=== PATIENT | male | born 1995 | race Caucasian/White ===

== ENCOUNTER 2023-09-12 16:21 | Outpatient (AMB) | payer OTHER, SELFPAY ==
[2023-09-12 16:30] VITALS: BP 150/69; PULSE 112; O2SAT 97; BMI 24.9
--- NOTE | 2023-09-12 16:30 | A.OFFPC_ITS ---
Vital Signs 09/12/23 16:30 09/12/23 17:00 Height 5 ft 9.5 in Weight 171 lb 2 oz BMI 24.9 BP 150/69 H 140/72 H Blood Pressure Location Lt brachial Rt brachial Pulse 112 H Pulse Source Pulse Oximeter Pulse Oximetry (%) 97 Oxygen Delivery Method Room Air Intake Visit Reasons: Med Review Intake Note: Patient is here for review of 2 meds, sertraline 50 mg, and ondansetron ER. Allergies No Known Allergies Allergy (Verified 09/12/23 16:31) Tobacco use date assessed: 09/12/23 Dental Screening Dental Screen Date: 09/12/23 Did you have a dental visit in the last 12 months?: No Was dental information given to patient?: Yes HPI Med Review HPI Details 27 y/o male presents today for a med rev iew. Pt prescribed bupropion 37.5mg b.i.d. He states he is no longer taking bupropion. Blood pressure today 150/69, 112p. He is not on any medications for blood pressure. PHQ-9 14, DAWN-7 18. Pt notes he had been prescribed sertraline and Adderall by a provider. HPI Comments History of Present Illness Details Documentation assistance for Emmanuel Rangel MD, was provided by Yahir Granados, Academic Support Assistant on 09/12/2023 5:04 PM MIGUEL. Ana, Dr. Rangel, have read, observed, and verified documentation. [facility] Social History Housing: Apartment Patient Tobacco Use Status: Never used Tobacco e-Cigarette/Vaping Use: Never Used Second Hand Smoke Exposure: No service: No Current occupational status: employed Current occupational exposures/hazards: No Cognitive needs: No Hearing needs: No Vision needs: No Questionnaire PHQ-9 Over the last 2 weeks, how often have you been bothered by any of the following problems? 1. Little interest or pleasure in doing things: not at all 2. Feeling down, depressed, or hopeless: several days 3. Trouble falling or staying asleep, or sleeping too much: more than half the days 4. Feeling tired or having little energy: more than half the days 5. Poor appetite or overeating: nearly every day 6. Feeling bad about yourself - or that you are a failure or have let yourself or your family down: not at all 7. Trouble concentrating on things, such as reading the newspaper or watching television: nearly every day 8. Moving or speaking so slowly that other people could have noticed. Or the opposite - being so fidgety or restless that you have been moving around a lot more than usual: nearly every day 9. Thoughts that you would be better off or of hurting yourself in some way: not at all Total score: 14 Depression Screening Interpretation: Positive Depression Screening Done: Yes Source: Developed by Drs. Abundio Max, Asiya Wayne, Bobby French and colleagues, with an educational hugh from [employer] Thrive Questionnaire Date Thrive assessed: 09/12/23 I am a: Patient What is your living situation today?: I have a steady place to live Within the past 12 months, did the food you bought not last and you didn't have the money to get more?: Never true Within the past 12 months, did you worry whether your food would run out before you got money to buy more?: Never true Do you have trouble paying for medicines?: No Do you have trouble getting transportation to medical appointments?: No Do you have trouble paying your heating and electricity bill?: No Do you have trouble taking care of your child, family member or friend?: No Do you have trouble with day-to-day activities such as bathing, preparing meals, shopping, managing finances, etc.?: No Are you currently unemployed and looking for a job?: No Are you interested in more education?: Yes THRIVE Score: 0 AUDIT C Alcohol Use Questionnaire (AUDIT-C) 1. How often do you have a drink containing alcohol?: 2-3 times a week 2. How many drinks containing alcohol do you have on a typical day when you are drinking?: 1 or 2 3. How often do you have six or more drinks on one occasion?: Never Total Score: 3 DAWN-7 AMB Questionnaire DAWN-7 Date DAWN - 7 assessed: 09/12/23 Feeling nervous, anxious, or on edge: 3 = Nearly every day Not being able to stop or control worryin = Nearly every day Worrying too much about different things: 3 = Nearly every day Trouble relaxin = Nearly every day Being so restless that it is hard to sit still: 3 = Nearly every day Becoming easily annoyed or irritable: 2 = More than half the days Feeling afraid as if something awful might happen: 1 = Several days Total DAWN-7 score (0-4 normal; 5-9 mild; 10-14 moderate; 15-21 severe): 18 Source: Developed by Drs. Abundio Max, Asiya Wayne, Bobby French and colleagues, with an educational hugh from [employer] Review of Systems Const Denies chills, Denies fatigue, Denies fever(s), Denies headache(s) and Denies weakness ENT Denies dizziness and Denies headache(s) Card Denies dyspnea Resp Denies cough, Denies dyspnea, Denies wheezing and Denies other (shortness of breath) Musc Denies numbness and Denies tingling Neuro Denies dizziness, Denies headache(s), Denies numbness, Denies tingling and Nam es weakness Psych Denies anxiety and Denies depression Endo Denies fatigue Aller/Immun Denies wheezing Physical exam (Primary Care) Vital Signs: Last Vital Signs Pulse 112 H 09/12/23 16:30 BP 150/69 H 09/12/23 16:30 Pulse Ox 97 09/12/23 16:30 Oxygen Delivery Method Room Air 09/12/23 16:30 BMI result Body Mass Index 24.9 Tobacco/Smoking Status: Tobacco use Status Tobacco use date assessed 09/12/23 09/12/23 16:47 Patient Tobacco Use Status Never used Tobacco 09/12/23 16:47 e-Cigarette/Vaping Use Never Used 09/12/23 16:47 PHQ-9: PHQ-9 Score PHQ-9: Total score 14 09/12/23 16:57 Depression Screening Interpretation: Positive Thrive Assessment: Date of Thrive Assessment Date Thrive assessed 09/12/23 09/12/23 16:47 Const General: well developed; No acute distress Nutritional Appearance: well nourished Orientation/consciousness: patient oriented x3 HENMT Head: Yes normocephalic and Yes atraumatic Eyes General: appearance normal, both eyes and all related structures Pupils: Equal, round and reactive pupils present EOM: EOMs intact bilaterally Resp Effort & Inspection: normal respiratory effort Auscultation: clear to auscultation bilaterally Cardio Rate: tachycardic Rhythm: regular rhythm Heart sounds: S1 normal heart sound present, S2 normal heart sound present, no gallops, no murmurs and no rubs Neuro General: patient oriented x3 and gait normal Cranial nerves: Yes Equal, round and reactive pupils present Psych Affect: normal affect Assessment and Plan Assessment & Plan (1) Anxiety with depression: Code(s): F41.8 - Other specified anxiety disorders Plan: Start?sertraline (2) Difficulty concentrating: Code(s): R41.840 - Attention and concentration deficit Plan: Patient?says?he?had?been?on?Adderall. He?can?sign?a?release?of?information?so?I?can?see?his?prior?provider's?notes We?can?follow-up?on?this?subsequently (3) Hypertension: Code(s): I10 - Essential (primary) hypertension Plan: Blood?pressure?is?high?and?patient?has?mild?tachycardia Start?metoprolol (4) Tachycardia: Code(s): R00.0 - Tachycardia, unspecified Plan: As?above,?start?metoprolol Orders: Orders Comprehensive [place]. Panel Fast Today Z00.00 - Encounter for general adult medical examination without abnormal findings Complete Blood Count Auto Diff Today Z00.00 - Encounter for general adult medical examination without abnormal findings Microalbumin, Random (w Creat) Today I10 - Essential (primary) hypertension UA and rflx microscopic Today Z00.00 - Encounter for general adult medical examination without abnormal findings Lipid Panel Today Z00.00 - Encounter for general adult medical examination without abnormal findings TSH reflex Free T4 Today Z00.00 - Encounter for general adult medical examination without abnormal findings Vitamin B12 and Folate Today E53.8 - Deficiency of other specified B group vitamins Coding Level of Care Code Est Pt Level 4 (68580) Diagnoses Anxiety with depression F41.8 Difficulty concentrating R41.840 Hypertension I10 Tachycardia R00.0
[2023-09-12 17:00] VITALS: BP 140/72
== END 2023-09-12 17:00 ==
PROVIDERS: PCP Family Medicine; Visit Provider Family Medicine
DX: F41.8 Other specified anxiety disorders (principal); R41.840 Attention and concentration deficit; I10 Essential (primary) hypertension; R00.0 Tachycardia, unspecified
CPT/HCPCS: 99214